=== PATIENT | male | born 1965 | race Native Hawaiian/Other Pacific Islander ===

== ENCOUNTER 2020-01-09 09:49 | Outpatient (CLI) | payer BC | END 2020-01-09 23:30 | disposition home or self-care (01) | LOC: CT 09:49 | DX: R60.9 Edema, unspecified (principal); M54.89 Other dorsalgia | CPT/HCPCS: 36415; 82565; 84520; Q9963 ==

== ENCOUNTER 2020-01-25 10:17 | Outpatient (CLI) | payer BC | END 2020-01-25 22:23 | disposition home or self-care (01) | LOC: US 10:17 | DX: R60.9 Edema, unspecified (principal) ==